=== PATIENT | female | born 1950 | race Caucasian/White ===

== ENCOUNTER 2016-10-24 19:31 | Emergency (ER) | payer BC ==
[2016-10-24 19:22] LABS: URINE SOURCE CLEAN CATCH
[2016-10-24 19:24] LABS: MICRO INDICATED? YES; URINE APPEARANCE CLEAR; URINE BILIRUBIN NEG (NEG); URINE BLOOD NEG (NEG); URINE COLOR YELLOW; URINE GLUCOSE NEG (NORM); URINE KETONE NEG (NEG); URINE LEUKOCYTE ESTERASE 2+ (NEG); URINE NITRATE NEG (NEG); URINE PROTEIN NEG (NEG)
[2016-10-24 19:25] LABS: CULTURE INDICATED? YES; URINE BACTERIA 1+ (NEG); URINE MUCUS PRESENT; URINE RBC 0-2 /[HPF] (0-2); URINE SQUAMOUS EPITHELIAL CELL OCCAS /[HPF]; URINE TRANSITIONAL EPI CELLS FEW /[HPF]; URINE WBC 25-50 /[HPF] (0-5)
[~2016-10-24 19:31] MED LIST: ALL DAY ALLERGY10 MG PO; AMLODIPINE BESYL5 MG PO; ASPIRIN81 M2 PO; BIOTIN2500 MCG PO; CLOPIDOGREL75 MG PO; DETROL LA2 MG PO; FLEXERIL10 MG PO; GLUCOPHAGE500 M1 PO; GLUCOTROL XL PO; HCTZ PO; MACROBID100 M1 PO; METFORMIN HCL500 M1 PO; NEURONTIN100 MG PO; SIMVASTATIN20 MG PO; TIROSINT25 MCG PO; TOLTERODINE TART4 MG PO; TRIAMTERENE-HCT1 TA6 PO; VITAMIN D31000 UNI1 PO; VOLTAREN50 MG PO; ZOCOR20 MG PO; ZYLOPRIM100 MG PO
== END 2016-10-24 19:56 | disposition home or self-care (01) ==
LOC: SED 19:31
PROVIDERS: Emergency Medicine
DX: N39.0 Urinary tract infection, site not specified (principal); E11.9 Type 2 diabetes mellitus without complications; E78.5 Hyperlipidemia, unspecified; Z79.899 Other long term (current) drug therapy; Z79.02 Long term (current) use of antithrombotics/antiplatelets
CPT/HCPCS: 81003; 87086; 99283